=== PATIENT | female | born 1965 | race Caucasian/White ===

== ENCOUNTER → 2016-08-01 | Outpatient (CLI) | payer OTHER ==
[~2016-08-01] MED LIST: ALLEVE; BACTRIM 400-801 TA1 PO; BACTRIM DS TABL1 TA1 PO; BENZONATATE PO; CALCIUM + D 6001 TA1 PO; CLEOCIN150 M2 PO; CORTISPORIN-TC10 ML OT; ERY-TAB333 MG PO; GUAIFENESIN200 M1 PO; IBUPROFEN PO; LORTAB 5/500 TA1 TA1 PO; MEDROL PO; MEDROL4 MG/DOSE- PO; METOPROLOL SUCC25 MG PO; NAPROSYN500 MG PO; PANTOPRAZOLE SO20 MG PO; PHENERGAN DM1 ML PO; PRAVASTATIN SOD10 MG PO; PROZAC PO; ROBAXIN 750750 M1 PO; TRAZODONE PO; TYLENOL #3 PO; ULTRAM PO; VIBRAMYCIN100 M1 PO; VICODIN 5/500 T1 TAB PO; VOLTAREN50 MG PO; ZITHROMAX PO; ZYRTEC PO; [UNRECOGNIZED DRUG - OTHER]
--- NOTE | ~2016-08-01 | MY11 ---
[facility] A Service [facility] RADIOLOGY TEXT RESULTS PATIENT: ANDRY YANG LOCATION: [facility] : 65 UNIT #: [id number] AGE: [address]: MALISSA DURANT MD SEX: F ORDER DR: [id number] [place] [address] [id number] P MR#: [id number] Acc #: [id number] NAME: ANDRY YANG : 1965 SEX: F STUDY DATE/TIME: 08/01/2016 11:22 UNIT: [facility] ROOM: STUDY DESCRIPTION: MY Mammogram Screening Dig Ketan Attending Physician: Malissa Durant M.D. Referring Physician: Malissa Durant M.D. Ordering Physician: Malissa Durant M.D. Primary Care Physician: Malissa Durant M.D. MEDICAL IMAGING REPORT This report is preliminary unless electronic signature is present. EXAM Screening mammogram 08/01 INDICATIONS 51-year-old with no personal history, but positive family history of breast cancer. Screening exam. TECHNIQUE Routine digital screening views of both breasts were obtained. Study reviewed with an FDA-approved CAD device. COMPARISON 12/29/2014, 10/31/2013 FINDINGS Breast parenchyma shows scattered fibroglandular densities. No masses or suspicious microcalcifications are seen. IMPRESSION Negative mammogram. Routine screen 1 year recommended. Patient's over the age of 40 are entered into a reminder system with target due date for the next mammogram. A result letter will be sent to the patient. BIRADS: 1 Negative Dictated by... Bipin Kincaid Jr., M.D. THIS IS AN ELECTRONICALLY VERIFIED REPORT [facility] A Service [facility] RADIOLOGY TEXT RESULTS PATIENT: ANDRY YANG LOCATION: [facility] : 65 UNIT #: [id number] AGE: [address]: MALISSA DURANT MD SEX: F ORDER DR: Bipin Kincaid Jr., M.D. at 08/01/2016 4:48 PM JARRET/wilber TD: 08/01/2016 13:33 JOB #: [id number] MEDICAL IMAGING REPORT Page 1 of 1
== END | disposition home or self-care (01) ==
LOC: SMAM 07:59
DX: Z12.31 Encounter for screening mammogram for malignant neoplasm of breast (principal); Z80.3 Family history of malignant neoplasm of breast
CPT/HCPCS: G0202

== ENCOUNTER → 2016-11-11 | Outpatient (CLI) | payer OTHER ==
--- NOTE | ~2016-11-11 | CR63 ---
[facility]. [facility] A Service of [facility] RADIOLOGY TEXT RESULTS PATIENT: ANDRY YANG LOCATION: [facility] : 65 UNIT #: [id number] AGE: [address]: MALISSA DURANT MD SEX: F ORDER DR: [id number] [address] [address] [id number] O MR#: [id number] Acc #: [id number] NAME: ANDRY YANG : 1965 SEX: F STUDY DATE/TIME: 11/11/2016 14:35 UNIT: [facility] ROOM: STUDY DESCRIPTION: CR Chest 2 View Attending Physician: Malissa Durant M.D. Referring Physician: Malissa Durant M.D. Ordering Physician: Malissa Durant M.D. Primary Care Physician: Malissa Durant M.D. MEDICAL IMAGING REPORT This report is preliminary unless electronic signature is present. EXAM Chest PA and lateral, 11/11/2016 HISTORY Coughing up phlegm every night for 1 month, shortness of breath chest congestion and benign essential hypertension. FINDINGS PA and lateral examination of the chest upright shows a good expansion of the parenchyma with a normal distribution of the pulmonary vascularity. There is no indication of congestion, effusion, infiltrate, tumor, or nodular density. The pleural reflections and diaphragmatic contours are normal. The cardiac silhouette and mediastinal anatomy is within normal limits. IMPRESSION Normal chest. Dictated by... Mg Montgomery M.D. THIS IS AN ELECTRONICALLY VERIFIED REPORT Mg Montgomery M.D. at 11/14/2016 7:12 AM SYBIL/ángel TD: 11/12/2016 00:39 JOB #: [id number] MEDICAL IMAGING REPORT Page 1 of 1
== END | disposition home or self-care (01) ==
LOC: SRAD 14:30
DX: R05 Cough (principal)
CPT/HCPCS: 71020

== ENCOUNTER → 2016-11-16 | Outpatient (CLI) | payer OTHER ==
--- NOTE | ~2016-11-16 | TH ---
Unit #: [id number] #: [id number] Patient: ANDRY YANG [id number] [address] [address] [id number] O MR#: [id number] NAME: ANDRY YANG : 1965 SEX: F STUDY DATE/TIME: 11/16/2016 UNIT: CN ROOM: STUDY DESCRIPTION: Attending Physician: Lalo Finnegan M.D. Referring Physician: Lalo Finnegan M.D. Primary Care Physician: Malissa Durant M.D. CARDIOLOGY REPORT EXAM Stress ECG and nuclear combined. INDICATION Chest pain, family history of coronary artery disease, and inability to exercise adequately. SUMMARY The patient was given Lexiscan intravenously while at rest, as well as technetium 99 Cardiolite 10.65 and 32 mCi at rest and stress, respectively. Appropriate views were obtained. FINDINGS The rest and stress ECG showed nonspecific ST changes V4-V6. There were no diagnostic ST changes. There were no significant dysrhythmias or heart block. There was headache noted, as well as shortness of breath, chest pressure, and nausea. Heart rate increased from 66 to 139, and blood pressure increased from 128/71 to 136/72. Perfusion images demonstrated normal perfusion throughout the myocardium with the exception of breast attenuation artifact at both rest and stress. There was moderate intestinal artifact at both rest and stress. Planar images showed no significant patient motion either at rest or stress. There is no significant lung uptake, LV or RV enlargement. Summed stress score is zero. Gated perfusion wall motion analysis demonstrates normal wall motion throughout the myocardium with a very small ventricle 46 mL and ejection fraction greater than 65% with no wall motion abnormalities. IMPRESSION 1. Stress ECG with Lexiscan shows no ischemia. 2. Nonspecific symptoms with Lexiscan. 3. Normal stress nuclear study with no evidence of infarction. 4. Normal wall motion with excellent ejection fraction. 1. Dictated by... Julián Clements M.D. Anand TD: 11/16/2016 18:38 JOB #: [id number] Unit #: [id number] #: [id number] Patient: ANDRY YANG CARDIOLOGY REPORT Page 1 of 1 X Julián Clements MD CARDIOLOGY REPORT
== END | disposition home or self-care (01) ==
LOC: CNUC 07:59 → CNIV 11-18 09:00
DX: R07.9 Chest pain, unspecified (principal)
CPT/HCPCS: 78452; 93017; A9500; J2785

== ENCOUNTER → 2016-12-09 | Outpatient (CLI) | payer OTHER ==
--- NOTE | ~2016-12-09 | US37 ---
[facility] A Service of [facility] & [facility] RADIOLOGY TEXT RESULTS PATIENT: ANDRY YANG LOCATION: [facility] : 65 UNIT #: [id number] AGE: [address]: Lalo Finnegan MD SEX: F ORDER DR: [id number] [facility] [address] [place], [place] [address] [id number] O MR#: [id number] Acc #: [id number] NAME: ANDRY YANG : 1965 SEX: F STUDY DATE/TIME: 12/09/2016 13:44 UNIT: [facility] ROOM: STUDY DESCRIPTION: US Carotid W/Doppler Bilateral Attending Physician: Lalo Finnegan M.D. Referring Physician: Lalo Finnegan M.D. Ordering Physician: Jaja Farrell M.D. Primary Care Physician: Lalo Finnegan M.D. MEDICAL IMAGING REPORT This report is preliminary unless electronic signature is present EXAM Carotid Doppler bilateral, 12/09/2016 HISTORY Dizziness, syncope for 11 years. Confusion and memory loss with loss of balance and coordination in the last year. Slurred speech and blurred vision with difficulty swallowing in the last year. Left-sided weakness for 1 week. Evaluate for carotid stenosis. FINDINGS García-scale carotid artery images were obtained as well as Doppler waveform spectral analysis and color flow Doppler imaging. The examination was interpreted according to NASCET criteria. There is no hemodynamically significant stenosis in either carotid artery. Peak systolic velocity in the right and left internal carotid arteries is 118 cm/sec and 82 cm/sec respectively. Antegrade blood flow is seen both vertebral arteries. There is mild plaque bilaterally. IMPRESSION No hemodynamically significant stenosis in either carotid artery. Dictated by... Mg Montgomery M.D. THIS IS AN ELECTRONICALLY VERIFIED REPORT Mg Montgomery M.D. at 12/12/2016 6:07 AM SYBIL/ángel TD: 12/09/2016 22:01 JOB #: [id number] [facility] A Service of [facility] RADIOLOGY TEXT RESULTS PATIENT: ANDRY YANG LOCATION: [facility] : 65 UNIT #: [id number] AGE: [address]: Lalo Finnegan MD SEX: F ORDER DR: MEDICAL IMAGING REPORT Page 1 of 1 COPY
== END | disposition home or self-care (01) ==
LOC: CNUC 11-16 08:00 → CNIV 12:55 → CNUC 13:00 → CECH 13:00
DX: R07.9 Chest pain, unspecified (principal); I36.1 Nonrheumatic tricuspid (valve) insufficiency; I34.0 Nonrheumatic mitral (valve) insufficiency
CPT/HCPCS: 93306; 93880